=== PATIENT | female | born 1990 | race Caucasian/White ===

== ENCOUNTER → 2017-09-11 | Outpatient (REF) ==
[~2017-09-11] MED LIST: AMOX-559 PO; BUTA1CAP4 PO; BUTA1CAP6 PO; CELE100C79 PO; CIPR-344 PO; CITA-139 PO; CITA-141 PO; CITA-156 PO; DIPH0.5D21 IM; ETHI1TAB26 PO; FAM20 PO; HYDR-2954 PO; HYDR-4309 PO; HYDR-6016 PO; IBU800 PO; IBUP200C71 PO; IBUP800T37 PO; KET10 PO; LEUP11.26 IM; LEVO1TAB31 PO; LEVO1TAB48 PO; LOR5 PO; MULT-820 PO; NOR5 PO; NORG1TAB96 PO; OXYC-869 PO; PER PO; POLY119P24 PO; PRE10 PO; PROM-110 PO; [UNRECOGNIZED DRUG - CODE] PO
[2017-09-11 09:00] LABS: LDL CHOLESTEROL 78 mg/dl
== END ==
DX: Z02.9 Encounter for administrative examinations, unspecified (principal)

== ENCOUNTER 2018-04-27 11:16 | Emergency (ER) | payer OTHER ==
[~2018-04-27 11:16] MED LIST changes: +CEPH500C24 PO; -CITA-139 PO; +CITA-145 PO; +CLIN25GE3 TP; -DIPH0.5D21 IM; +DIPH0.5S4 IM; -HYDR-4309 PO; +HYDR-653 PO; +IBUP-136 PO; -IBUP200C71 PO; +SPIR25TA80 PO; +TRET20CR34 TP
[2018-04-27] MEDS ORDERED: KETOROLAC 15 MG/ML VIAL IVP ONE (11:45)
--- NOTE | 2018-04-27 12:04 | ER Report ---
History and Physical Time Seen By MD: 11:40 Hx. of Stated Complaint: abd pain cramping due to endo metrosis HPI/ROS CHIEF COMPLAINT: Abdominal pain/pelvic pain HISTORY OF PRESENT ILLNESS: Pt presents with onset of lower abdominal pain that began today while at work; this is similar to prior episodes of endometriosis, with which pt has been diagnoses. There are no differences with today's symptoms other than her menses began slightly early and pt was not prepared with ibuprofen. She has had laparoscopy showing endometriosis and today's symptoms are the same. REVIEW OF SYSTEMS: Constitutional: No fever, no chills. Eyes: No discharge. ENT: No sore throat. Cardiovascular: No chest pain, no palpitations. Respiratory: No cough, no shortness of breath. Gastrointestinal: above Genitourinary: no dysuria, no pelvic discharge; spotting c/w menses Musculoskeletal: No back pain. Skin: No rashes. Neurological: No headache. Remainder of the 14 system rev: Yes Allergies: Coded Allergies: No Known Drug Allergies (Verified , 04/27/18) Home Meds Active Scripts Citalopram Hydrobromide (CITALOPRAM HBR) 40 Mg Tablet, 1 TAB PO QDAY for 30 Days, #30 TAB 0 Refills Prov:DEIDRA HUNTER DNP, FNP-BC 04/26/18 Butalb/Acetaminophen/Caffeine (FIORICET 50-300-40) 1 Each Capsule, 1-2 CAPSULE PO Q4H PRN for HEADACHE, #30 CAPSULE 2 Refills Max: 6 caps/day Prov:DEIDRA HUNTER DNP, FNP-BC 11/27/17 Tretinoin 0.05% Top Cream (RETIN-A 0.05% TOP CREAM) 20 Gm Cream..g., 1 RAUL TP QHS for 30 Days, #1 TUBE 2 Refills Prov:IVANMEMO Jorge [place] 10/01/17 Clindamycin Phos/Benzoyl Perox (BENZACLIN GEL) 25 Gm Gel..gram., 1 RAUL TP QAM for 30 Days, #1 TUBE 2 Refills Prov:IVANMEMO C PATEL 10/01/17 Discontinued Scripts Cephalexin Monohydrate (CEPHALEXIN) 500 Mg Cap, 1 CAP PO QID for 7 Days, #28 CAP 0 Refills Prov:DEIDRA HUNTER DNP, FNP-BC 10/30/17 Levonorgestrel-Eth Estradiol (AVIANE) 1 Each Tablet, 1 EACH PO QDAY, #1 PACK 3 Refills Continuous cycling method. Take 3 weeks of active pills, skip placebo pills, immediately start new pack of active pills. Prov:ERCI HUNTERJANUSZ Morris DNP [facility] 10/16/17 Spironolactone (SPIRONOLACTONE) 25 Mg Tablet, 1 TAB PO QAM for 30 Days, #30 TAB 2 Refills Prov:MEMO LOVE Jorge [facility] 10/01/17 Celecoxib (CELEBREX) 100 Mg Capsule, 1 CAP PO BID PRN for PAIN, #60 CAPSULE 1 Refill Prov:ELSADEIDRA CANCHOLA DNP [facility] 05/08/17 Ibuprofen (IBUPROFEN) 800 Mg Tablet, 1 TAB PO Q8H PRN for CRAMPING, #30 TAB 1 [facility] 10/24/16 Hx Smoking: No Smoking Status: Never Smoker Hx Substance Use Disorder: No Hx Alcohol Use: Yes (weekly) Constitutional Vital Sign - Last 24 Hours 04/27/18 04/27/18 04/27/18 04/27/18 11:16 11:26 11:29 11:30 Temp 98.9 Pulse 58 69 Resp 12 B/P (MAP) 119/77 (91) 119/77 120/75 (90) Pulse Ox 97 O2 Delivery Room Air 04/27/18 04/27/18 04/27/18 11:46 12:00 12:16 Pulse 66 58 B/P (MAP) 111/71 (84) Pulse Ox 95 94 Physical Exam General Appearance: The patient is alert, has no immediate need for airway protection and no signs of toxicity. [ ] Eyes: Pupils equal and round no pallor or injection. ENT, Mouth: Mucous membranes are moist. Respiratory: There are no retractions, lungs are clear to auscultation. Cardiovascular: Regular rate and rhythm. Gastrointestinal: mild suprapubic ttp reproduces pain Neurological: alert, oriented Skin: Warm and dry, no rashes. Musculoskeletal: Extremities are nontender, nonswollen and have full range of motion. DIFFERENTIAL DIAGNOSIS: After history and physical exam differential diagnosis was considered for abdominal pain including but not limited to appendicitis, cholecystitis, gastritis and urinary tract infection, , infection. Medical Decision Making ED Course/Re-evaluation ED Course Pt presents with symptoms exactly similar to prior endometriosis. Resolved with toradol. Considered but doubt ectopic, preg, uti, other abd etiology. Pt comfortable on d/c, SRP's. Decision to Disposition Date: Apr 27, 2018 Decision to Disposition Time: 12:30 Depart Departure Latest Vital Signs Vital Signs Date Time Temp Pulse Resp B/P (MAP) Pulse Ox O2 Delivery O2 Flow Rate FiO2 04/27/18 12:16 58 94 04/27/18 12:00 111/71 (84) 04/27/18 11:29 98.9 12 Room Air Impression: Primary Impression: Pelvic pain Additional Impression: Endometriosis Condition: Improved Disposition: HOME OR SELF-CARE Referrals: DEIDRA HUNTER DNP, [employer] (PCP) Departure Forms: ER Transition Record, Medications Reconciliation, Off Work/School Form, School or Work Release?: Work Number of days to be released: 1 Patient Portal Information Patient Instructions: Pelvic Pain in Women (ED) Additional Instructions: Return for uncontrolled symptoms or any concerns. Problem Qualifiers LAVONNE KENDALL MD Apr 27, 2018 12:03
[2018-04-27 12:30] VITALS: BP 97/57
== END 2018-04-27 12:47 | disposition home or self-care (01) ==
LOC: ER 11:32
DX: N80.9 Endometriosis, unspecified (principal); R10.2 Pelvic and perineal pain
CPT/HCPCS: 96374; 99283; J1885

== ENCOUNTER → 2018-05-28 | Outpatient (CLI) | payer OTHER | LOC: RESP 01:04 | PROVIDERS: ATTEND Nurse Practitioner Primary Care | DX: G47.33 Obstructive sleep apnea (adult) (pediatric) (principal) ==

== ENCOUNTER → 2018-09-10 | Outpatient (CLI) | payer SELFPAY | LOC: RESP 20:50 | PROVIDERS: ATTEND Nurse Practitioner Primary Care | DX: G47.33 Obstructive sleep apnea (adult) (pediatric) (principal); G47.36 Sleep related hypoventilation in conditions classified elsewhere; G47.37 Central sleep apnea in conditions classified elsewhere ==

== ENCOUNTER → 2018-10-11 | Outpatient (REF) ==
[2018-10-11 10:40] LABS: LDL CHOLESTEROL 64 mg/dl
== END ==
DX: Z02.9 Encounter for administrative examinations, unspecified (principal)